=== PATIENT | male | born 1945 | race Hispanic/Latino ===

== ENCOUNTER 2018-12-23 11:55 | Outpatient (CLI) | payer MEDICARE ==
--- NOTE | 2018-12-23 13:01 | RAD ---
EXAM: Chest PA and lateral: HISTORY: Tobacco use. COMPARISON: 09/10/2015 FINDINGS: Heart: Normal cardiac silhouette Aorta: Unremarkable Pulmonary vessels: Normal Costophrenic angles: Costophrenic angles are clear. Lungs: Patchy interstitial opacities. Chronic changes are favored. Pneumothorax: No pneumothorax Osseous structures: No osseous abnormalities IMPRESSION: Chronic changes throughout the lung parenchyma. No acute cardiopulmonary process.
== END 2018-12-23 11:56 | disposition home or self-care (01) ==
LOC: BICRAD 11:55
PROVIDERS: ATTEND Family Medicine
DX: Z72.0 Tobacco use (principal)
CPT/HCPCS: 71046

== ENCOUNTER 2020-08-21 23:34 | Emergency (ER) | payer MEDICARE ==
[2020-08-22] MEDS ORDERED: hydrOXYzine 25 MG TAB ONE (01:43)
== END 2020-08-22 02:16 | disposition home or self-care (01) ==
LOC: ERS 23:34
DX: B02.9 Zoster without complications (principal); L01.00 Impetigo, unspecified; F17.210 Nicotine dependence, cigarettes, uncomplicated
CPT/HCPCS: 99282

== ENCOUNTER 2023-05-08 12:52 | Outpatient (CLI) | payer OTHER, MEDICAID | END 2023-05-08 12:53 | disposition home or self-care (01) | LOC: BICRAD 12:52 | PROVIDERS: ATTEND Family Medicine | DX: M54.50 Low back pain, unspecified (principal); M25.551 Pain in right hip; M25.552 Pain in left hip; M89.8X8 Other specified disorders of bone, other site; M47.816 Spondylosis without myelopathy or radiculopathy, lumbar region; M51.36 Other intervertebral disc degeneration, lumbar region; M89.38 Hypertrophy of bone, other site; M25.78 Osteophyte, vertebrae | CPT/HCPCS: 72100 ==